=== PATIENT | female | born 1990 | race Caucasian/White ===

== ENCOUNTER 2024-08-26 10:34 | Day surgery (SDC) | payer BC ==
[~2024-08-26 10:34] MED LIST: Dexamethasone 4 MG/ML 5 ML MDV ONE; Ketorolac 30 MG/ML SDV ONE; Lactated Ringers 1,000 ML IV SCH; Lidocaine 1% 5 ML VIAL ONE; Midazolam 1 MG/ML 2 ML SDV ONE; Ondansetron 4 MG/2 ML SDV ONE; Propofol 200 MG/20 ML SDV ONE; Rocuronium 50 MG/5 ML Vial ONE; Sodium Chloride 0.9% 10 ML Syringe FLUSH PRN; dexmedeTOMIDine HCl 200 MCG/2 ML SDV ONE; fentaNYL 100 MCG/2 ML SDV ONE; propofoL 500 MG/50 ML 50 ML ONE
[2024-08-26] MEDS ORDERED: Sodium Chloride 0.9% 100 ML IV ONE (10:35)
[2024-08-26] MEDS: Lactated Ringers 1,000 ML IV SCH (11:05)
[2024-08-26] MEDS: Scopalamine 1mg/3day Transdermal Patch TOP ONE (11:20)
[2024-08-26] MEDS ORDERED: Sugammadex Sodium 200 MG/2 ML VIAL IV ONE (11:24)
[2024-08-26] MEDS ORDERED: Lactated Ringers 1,000 ML ONE (11:36)
[2024-08-26] MEDS ORDERED: cefOXitin 2 GM Vial ONE (12:05)
[2024-08-26] MEDS: Bupivacaine 0.5% 30 ML SDV ONE (12:10)
[2024-08-26] MEDS: EPINEPHrine 1 MG/ML SDV ONE (12:10)
[2024-08-26] MEDS ORDERED: HYDROmorphone 0.5 MG/0.5 ML Syringe IVPUSH PRN (12:53)
[2024-08-26] MEDS: fentaNYL 100 MCG/2 ML SDV IVPUSH PRN (12:58)
[2024-08-26] MEDS: Ondansetron 4 MG/2 ML SDV IVPUSH PRN (14:40)
[2024-08-26] MEDS: oxyCODONE 5 MG Tab PO PRN (14:41)
[2024-08-26] MEDS ORDERED: Sodium Chloride 0.9% 10 ML Syringe FLUSH SCH (21:00)
== END 2024-08-26 15:40 | disposition home or self-care (01) ==
LOC: JD.SDS 10:34
PROVIDERS: ATTEND Surgery
DX: K35.33 Acute appendicitis with perforation, localized peritonitis, and gangrene, with abscess (principal); Z88.5 Allergy status to narcotic agent
CPT/HCPCS: 44970; 81025; A9270; J0171; J0665; J0694; J1100; J1885; J2003; J2250; J2405; J2704; J3010; J7120; 00840; 99140; J3490